=== PATIENT | female | born 1940 | race Caucasian/White ===

== ENCOUNTER 2019-09-29 08:00 | Outpatient (CLI) | payer MEDICARE, OTHER ==
[~2019-09-29 08:00] MED LIST: AMIO200T61 PO; ATOR10TA87 PO; CHOL10002 PO; RIVA20TA PO; SYN0.025T PO; TIMO5DRO32 EACHEYE; UBIQ100C3 PO
== END 2019-09-29 08:05 | disposition home or self-care (01) ==
LOC: RAD 08:00
PROVIDERS: ATTEND Internal Medicine Cardiovascular Disease
DX: Z53.21 Procedure and treatment not carried out due to patient leaving prior to being seen by health care provider (principal); I48.91 Unspecified atrial fibrillation; Z01.810 Encounter for preprocedural cardiovascular examination